=== PATIENT | male | born 1985 | race Caucasian/White ===

== ENCOUNTER 2018-04-19 23:06 | Emergency (ER) | payer OTHER ==
[~2018-04-19] VITALS: Ht 195.6 cm; Wt 81.7 kg
[~2018-04-19 23:06] MED LIST: ACYC800 PO; CYCL10 PO; HYDACE5325 PO; IBUP600 PO; IBUP800 PO; NAPR500 PO
[2018-04-19] MEDS ORDERED: Naprosyn500 MG PO (23:49)
[2018-04-19] MEDS ORDERED: Augmentin 875-1 EACH PO (23:49)
[2018-04-21] MEDS ORDERED: Norco 5-325 Ta1 EACH PO (19:51)
[2018-04-21] MEDS ORDERED: Augmentin 875-1 EACH PO (19:51)
== END 2018-04-20 00:22 | disposition home or self-care (01) ==
LOC: ER 23:06
DX: K02.9 Dental caries, unspecified (principal); I10 Essential (primary) hypertension; F17.210 Nicotine dependence, cigarettes, uncomplicated; Z91.048 Other nonmedicinal substance allergy status
CPT/HCPCS: 99283

== ENCOUNTER 2018-04-21 18:37 | Emergency (ER) | payer OTHER ==
[~2018-04-21] VITALS: Ht 195.6 cm; Wt 81.7 kg
[~2018-04-21 18:37] MED LIST changes: +Augmentin 875-1 EACH PO; +Naprosyn500 MG PO
[2018-04-21 19:30] LABS: Calcium, Ionized (POC) 1.17 mmol/L (1.10-1.46); Chloride (POC) 100 mmol/L (98-108); Creatinine (POC) 0.7 mg/dL (0.8-1.3); Glucose (ISTAT POC) 93 mg/dL (70-99); Hemoglobin (POC) 13.6 g/dL (13.5-17.5); Potassium (POC) 3.8 mmol/L (3.5-5.5); Sodium (POC) 140 mmol/L (135-148); Total CO2 (POC) 26 mmol/L (21-32)
[2018-04-21 19:40] LABS: BASOPHILS ABSOLUTE AUTO 0.08 K/mm3 (0.00-0.23); BASOPHILS PERCENT AUTO 1 % (0-2); EOSINOPHILS ABSOLUTE AUTO 0.26 K/mm3 (0.00-0.68); EOSINOPHILS PERCENT AUTO 2 % (0-6); Hematocrit 39.6 % (37.0-53.0); Hemoglobin 13.7 g/dL (13.5-17.5); IMMATURE GRAN ABSOLUTE AUTO 0.03 K/mm3 (0.00-0.10); IMMATURE GRAN PERCENT AUTO 0 % (0-1); LYMPHOCYTES ABSOLUTE AUTO 3.91 K/mm3 (0.84-5.20); LYMPHOCYTES PERCENT AUTO 32 % (21-46); MONOCYTES PERCENT AUTO 7 % (4-13); Mean Corpuscular HGB 30.1 pg (26.0-34.0); Mean Corpuscular HGB Conc 34.6 g/dL (31.5-36.5); Mean Corpuscular Volume 87 fL (80-100); Mean Platelet Volume 10.2 fL (9.1-12.4); NEUTROPHILS ABSOLUTE AUTO 6.99 K/mm3 (1.96-9.15); NEUTROPHILS PERCENT AUTO 58 % (41-73); Platelet Count 223 K/mm3 (150-400); RDW Coefficient Variation 12.2 % (11.7-14.2); RDW Standard Deviation 39.2 fL (35.1-46.3); Red Blood Cell Count 4.55 M/mm3 (4.30-5.90); White Blood Cell Count 12.17 K/mm3 (4.00-11.30)
[2018-04-21 19:47] LABS: Alanine Aminotransfer (ALT/SGP 16 U/L (12-78); Albumin, Blood 3.9 g/dL (3.4-5.0); Albumin/Globulin Ratio 1.1 (0.8-1.8); Alk Phos 66 U/L (50-136); Anion Gap 5 mmol/L (6-16); Aspartate Aminotrans (AST/SGOT 13 U/L (12-37); Bilirubin, Total 0.2 mg/dL (0.1-1.0); Blood Urea Nitrogen 6 mg/dL (8-24); Bun/Creatinine Ratio 8.5 (12.0-20.0); CO2, Blood 29 mmol/L (21-32); Calcium, Blood 8.8 mg/dL (8.5-10.1); Chloride, Blood 104 mmol/L (98-108); Creatinine, Blood 0.71 mg/dL (0.60-1.20); Globulin, Blood 3.6 g/dL (2.2-4.0); Glomerular Filtration Rate >60 (60-); Glucose, Blood 90 mg/dL (70-99); Potassium, Blood 3.7 mmol/L (3.5-5.5); Sodium, Blood 138 mmol/L (136-145); Total Protein, Blood 7.5 g/dL (6.4-8.2)
[2018-04-21] MEDS ORDERED: Norco 5-325 Ta1 EACH PO (19:51)
[2018-04-21] MEDS ORDERED: Augmentin 875-1 EACH PO (19:51)
== END 2018-04-21 20:25 | disposition home or self-care (01) ==
LOC: ER 18:37
PROVIDERS: Physician Assistant
DX: K04.7 Periapical abscess without sinus (principal); L03.213 Periorbital cellulitis; I10 Essential (primary) hypertension; F17.210 Nicotine dependence, cigarettes, uncomplicated; Z91.048 Other nonmedicinal substance allergy status
CPT/HCPCS: 36415; 70481; 80047; 80053; 85014; 85025; 96374; 96375; 99283-25; J0696; J1885; Q9967